=== PATIENT | male | born 1995 | race Caucasian/White ===

== ENCOUNTER 2021-11-30 18:55 | Emergency (ER) | payer SELFPAY | END 2021-11-30 20:40 | disposition left against medical advice (07) | LOC: CSHERS 18:55 | DX: Z53.21 Procedure and treatment not carried out due to patient leaving prior to being seen by health care provider (principal) ==

== ENCOUNTER 2021-12-01 14:52 | Emergency (ER) | payer SELFPAY ==
[2021-12-01] MEDS ORDERED: Acetaminophen 500 MG TAB ONE (17:47)
== END 2021-12-01 19:07 | disposition home or self-care (01) ==
LOC: CSHERS 14:52
DX: S80.11XA Contusion of right lower leg, initial encounter (principal); F17.200 Nicotine dependence, unspecified, uncomplicated; W20.8XXA Other cause of strike by thrown, projected or falling object, initial encounter

== ENCOUNTER 2022-05-08 13:40 | Emergency (ER) | payer OTHER ==
[2022-05-08] MEDS ORDERED: Ibuprofen 200 MG TAB ONE (14:37)
== END 2022-05-08 15:23 | disposition home or self-care (01) ==
LOC: CSHERS 13:40
DX: J11.1 Influenza due to unidentified influenza virus with other respiratory manifestations (principal); F17.200 Nicotine dependence, unspecified, uncomplicated; Z20.822 Contact with and (suspected) exposure to COVID-19
CPT/HCPCS: 87804; 99283; U0003; U0005

== ENCOUNTER 2023-11-14 09:28 | Emergency (ER) | payer OTHER ==
[2023-11-14] MEDS ORDERED: Lidocaine 1% w/Epinephrine 1:200K 30 ML VIAL ONE (09:54)
== END 2023-11-14 10:24 | disposition home or self-care (01) ==
LOC: CSHERS 09:28
DX: S61.217A Laceration without foreign body of left little finger without damage to nail, initial encounter (principal); F17.200 Nicotine dependence, unspecified, uncomplicated; W26.8XXA Contact with other sharp object(s), not elsewhere classified, initial encounter; Y99.0 Civilian activity done for income or pay
CPT/HCPCS: 12001; 99283